=== PATIENT | male | born 1970 | race Caucasian/White ===

== ENCOUNTER 2023-11-29 05:43 | Inpatient (IN) | payer OTHER ==
[2023-11-29] VITALS (40 sets, daily range): BP systolic 37–99; BP diastolic 21–72; PULSE 0–113; RESP 14–25; TEMP 93.5–94; O2SAT 100
[~2023-11-29] VITALS: Ht 167.6 cm; Wt 78.5 kg
[2023-11-29 06:05] LABS: MEAN CORPUSCULAR HEMOGLOBIN 22.8 pg (28.0-32.0); MEAN CORPUSCULAR HGB CONC 26.9 g/dL (31.0-37.0); MEAN CORPUSCULAR VOLUME 84.9 fL (80.0-94.0); MEAN PLATELET VOLUME 12.1 fl (7.4-10.4); PLATELET 142 x1000/uL (130-400); RED BLOOD CELL COUNT 2.15 mill/uL (4.7-6.1); RED CELL DISTRIBUTION WIDTH 19.8 % (11.6-14.6); WHITE BLOOD COUNT 13.6 x1000/uL (4.5-11.0)
[2023-11-29 06:08] LABS: CHLORIDE 96 mEq/L (98-107); POTASSIUM 5.1 mEq/L (3.5-5.1); SODIUM 134 mEq/L (136-145)
[2023-11-29 06:09] LABS: CALCIUM 8.8 mg/dL (8.7-10.4)
[2023-11-29 06:10] LABS: INR 1.7; PROTHROMBIN TIME 18.2 sec (9.6-11.0)
[2023-11-29 06:14] LABS: CREATININE 2.4 mg/dL (0.6-1.3); GLUCOSE 400 mg/dL (70-105); UREA NITROGEN BLOOD 48 mg/dL (9-23)
[2023-11-29 06:16] LABS: DIFFERENTIAL COMMENT 1
[2023-11-29 06:20] LABS: HEMATOCRIT. 18.3 % (42.0-52.0); HEMOGLOBIN. 4.9 g/dL (14.0-18.0)
[2023-11-29] MEDS ORDERED: IOHEXOL-350 100 ML BOTTLE ONE (06:22)
[2023-11-29] MEDS ORDERED: MIDAZOLAM HCL 100 MG in DEXT 5% WATER 80 ML IV ONE (06:30)
[2023-11-29] MEDS ORDERED: NOREPINEPHRINE 8MG/250ML PMX 250 ML IV STA (06:30)
[2023-11-29] MEDS: SODIUM CHLORIDE 0.9% 1,000 ML IV ONE (06:30)
[2023-11-29 06:33] LABS: CARBON DIOXIDE < 10 mEq/L (21-32); ETHANOL BLOOD < 10 mg/dL (<10); LACTIC ACID 23.8 mmol/L (0.4-2.0); TROPONIN I HIGH SENSITIVITY 920 ng/L (3.0-53)
[2023-11-29] MEDS: ETOMIDATE 2MG/ML 10ML VIAL IV ONE (06:38)
[2023-11-29] MEDS: SUCCINYLCHOLINE CHLORIDE 200MG/10ML IV ONE (06:39)
[2023-11-29] MEDS: NOREPINEPHRINE 8MG/250ML PMX 250 ML IV NR (06:42)
[2023-11-29] MEDS ORDERED: MIDAZOLAM HCL 100 MG in SODIUM CHLORIDE 0.9% 100 ML IV PRN (06:45)
[2023-11-29 07:31] LABS: CLARITY URINE CLOUDY (CLEAR); COLOR URINE DARK YELLOW (YELLOW); GLUCOSE URINE 3+ (NEGATIVE); KETONES URINE TRACE (NEGATIVE); LEUKOCYTE ESTERASE URINE NEGATIVE (NEGATIVE); NITRITE URINE NEGATIVE (NEGATIVE); OCCULT BLOOD URINE NEGATIVE (NEGATIVE); PROTEIN URINE 1+ (NEGATIVE); SPECIFIC GRAVITY URINE 1.021 (1.005-1.030)
[2023-11-29 07:45] LABS: MUCUS URINE 2+ /lpf (NONE/TRACE)
[2023-11-29 07:46] LABS: RBC URINE NONE SEEN /hpf (0-2); SQUAMOUS EPITHELIAL CELL URINE FEW /lpf (RARE/1+)
[2023-11-29 07:48] LABS: BACTERIA URINE TRACE
[2023-11-29] MEDS: VASOPRESSIN 20 UNIT in SODIUM CHLORIDE 0.9% 99 ML STA (07:55)
[2023-11-29 07:59] LABS: *AMPHETAMINES SCREEN URINE NEGATIVE (NEGATIVE); *BARBITURATES SCREEN URINE NEGATIVE (NEGATIVE); *BENZODIAZEPINES SCREEN URINE NEGATIVE (NEGATIVE); *COCAINE SCREEN URINE NEGATIVE (NEGATIVE); CANNABINOID URINE SCREEN NEGATIVE (NEGATIVE); ECSTASY MDMA SCREEN URINE NEGATIVE (NEGATIVE); METHADONE URINE SCREEN NEGATIVE (NEGATIVE); OPIATES URINE SCREEN NEGATIVE (NEGATIVE); PHENCYCLIDINE URINE SCREEN NEGATIVE (NEGATIVE)
[2023-11-29] MEDS: VASOPRESSIN 20 UNIT in SODIUM CHLORIDE 0.9% 99 ML IV STA (08:30)
[2023-11-29] MEDS ORDERED: DOCUSATE SODIUM 100MG CAPSULE PO PRN (08:45)
[2023-11-29] MEDS ORDERED: ACETAMINOPHEN 325MG TABLET PO PRN ×2 (08:45)
[2023-11-29] MEDS ORDERED: ONDANSETRON HCL 4MG/2ML INJ IV PRN (08:45)
[2023-11-29] MEDS: SODIUM BICARBONATE 8.4% 50MEQ/50ML SYR IV ONE (08:45)
[2023-11-29] MEDS ORDERED: IPRATROPIUM/ALBUTEROL 0.5-3(2.5)MG/3ML NEB HHN PRN (08:45)
[2023-11-29] MEDS ORDERED: GUAIFENESIN 200MG/10ML SUGAR FREE UDC PO PRN (08:45)
[2023-11-29] MEDS ORDERED: MAGNESIUM/ALUMINUM HYDROXIDE/SIMETHICONE 30ML UDC PO PRN (08:45)
[2023-11-29] MEDS ORDERED: CLONIDINE 0.1MG TABLET PO PRN (08:45)
[2023-11-29] MEDS ORDERED: ETOMIDATE 2MG/ML 10ML VIAL IV ONE (09:00)
[2023-11-29] MEDS ORDERED: EPINEPHRINE 0.1MG/ML (1:10,000) 10ML SYR ONE (09:00)
[2023-11-29] MEDS ORDERED: DEXTROSE 50% WATER 50ML SYRINGE IV PRN (09:15)
[2023-11-29] MEDS: SODIUM BICARBONATE 8.4% 50MEQ/50ML SYR IV NR ×2 (09:15→12:25)
[2023-11-29] MEDS ORDERED: EPINEPHRINE 10 MG in SODIUM CHLORIDE 0.9% 240 ML IV PRN (09:15)
[2023-11-29] MEDS ORDERED: DOPAMINE 800MG PREMIX (DOUBLE) 250 ML IV PRN (09:15)
[2023-11-29] MEDS: DOPAMINE 800MG PREMIX (DOUBLE) 250 ML IV PRN (09:30)
[2023-11-29 09:42] LABS: IRON 50 ug/dL (65-175)
[2023-11-29 09:44] LABS: TOTAL IRON BINDING CAPACITY 313 ug/dl (250-425)
[2023-11-29] MEDS ORDERED: DEXT 5%/0.9% NACL 1,000 ML IV SCH (09:45)
[2023-11-29 09:50] LABS: FERRITIN 32 ng/mL (22-322); FOLIC ACID (FOLATE) SERUM > 20.00 ng/mL (>5.38); VITAMIN B12 SERUM 701 pg/mL (211-911)
[2023-11-29] MEDS ORDERED: PANTOPRAZOLE SODIUM 40 MG/VIAL IV SCH (10:00)
[2023-11-29 10:16] LABS: PHOSPHORUS 8.2 mg/dL (2.5-4.9); TROPONIN I HIGH SENSITIVITY 918 ng/L (3.0-53)
[2023-11-29 10:32] LABS: BG PCO2 27.8 mmHg (35.0-45.0); BG PH 6.871 (7.350-7.450); BG PO2 397.5 mmHg (75.0-100.0); BG TOTAL HEMOGLOBIN < 4.5 g/dL (12.0-18.0)
[2023-11-29] MEDS: EPINEPHRINE 10 MG in SODIUM CHLORIDE 0.9% 240 ML IV PRN (10:55)
[2023-11-29 11:14] LABS: ALANINE AMINOTRANSFERASE 457 IU/L (10-49); ALBUMIN 1.6 g/dL (3.2-4.8); ASPARTATE AMINOTRANSFERASE 678 IU/L (<34); BETA HYDROXYBUTYRATE 0.2 mMol/L (0.0-0.3); BILIRUBIN DIRECT 1.2 mg/dL (<=3.0); BILIRUBIN TOTAL 1.7 mg/dL (0.1-1.0); PROTEIN TOTAL 3.1 g/dL (6.0-8.3)
[2023-11-29 11:23] LABS: LACTATE DEHYDROGENASE 1368 IU/L (120-246)
[2023-11-29] MEDS ORDERED: NOREPINEPHRINE 32 MG in DEXT 5% WATER 218 ML IV PRN (11:30)
[2023-11-29 11:33] LABS: AMMONIA 1233 uMol/L (<32)
[2023-11-29] MEDS: NOREPINEPHRINE 32 MG in DEXT 5% WATER 218 ML IV PRN (11:52)
[2023-11-29] MEDS: PHENYLEPHRINE 100 MG in DEXT 5% WATER 240 ML IV PRN (11:53)
[2023-11-29] MEDS: SODIUM BICARBONATE 150 MEQ in DEXTROSE 5% WATER 850 ML IV SCH (11:54)
[2023-11-29] MEDS ORDERED: NOREPINEPHRINE 8MG/250ML PMX 250 ML IV PRN (12:00)
[2023-11-29] MEDS: OCTREOTIDE 1,000 MCG in SODIUM CHLORIDE 0.9% 98 ML IV PRN (12:20)
[2023-11-29] MEDS: PANTOPRAZOLE 80 MG in SODIUM CHLORIDE 0.9% 100 ML IV SCH (12:20)
[2023-11-29] MEDS: VASOPRESSIN 20 UNIT in SODIUM CHLORIDE 0.9% 99 ML IV PRN (12:21)
[2023-11-29] MEDS: VANCOMYCIN 1.5GM/250ML IV NR (12:21)
[2023-11-29] MEDS: PIPERACILLIN/TAZO 3.375G/50ML 50 ML IV SCH (12:25)
[2023-11-29 12:37] LABS: PLATELET ESTIMATE NORMAL
[2023-11-29 12:38] LABS: ANISOCYTOSIS 2+; HYPOCHROMASIA 1+
[2023-11-29] MEDS: OCTREOTIDE ACETATE 50 MCG/ML 1ML IV NR (12:51)
[2023-11-29] MEDS: BLOOD SUGAR DIAGNOSTIC STRIP TEST SCH (12:51)
[2023-11-29] MEDS: INSULIN LISPRO 100 UNITS/ML SUBCUT SCH (12:54)
[2023-11-29] MEDS ORDERED: OCTREOTIDE 1,000 MCG in SODIUM CHLORIDE 0.9% 98 ML IV PRN (13:40)
[2023-11-29] MEDS: LACTULOSE 20G/30ML UDC NG SCH (13:59)
[2023-11-29] MEDS: HYDROCORTISONE SOD SUCCINATE 100 MG/2 ML VIAL IV SCH (13:59)
[2023-11-29] MEDS: ALBUMIN HUMAN 25GM/100ML (25%) IV SCH (14:08)
[2023-11-30] MEDS ORDERED: PHYTONADIONE 10MG/ML INJ SUBCUT SCH (15:00)
== END 2023-11-29 15:58 | DRG 871 ==
LOC: ER 05:43 → CVICU 08:59 → EDBEDREQSVC 09:02 → EDBEDREQTM 09:02 → EDBEDREQ 09:02
PROVIDERS: ADMIT Preventive Medicine Clinical Informatics; ATTEND Preventive Medicine Clinical Informatics
PROC: 30233K1 Transfusion of Nonautologous Frozen Plasma into Peripheral Vein, Percutaneous Approach (ICD-10-PCS; principal; 2023-11-29)
PROC: 30233N1 Transfusion of Nonautologous Red Blood Cells into Peripheral Vein, Percutaneous Approach (ICD-10-PCS; 2023-11-29)
PROC: 5A1935Z Respiratory Ventilation, Less than 24 Consecutive Hours (ICD-10-PCS; 2023-11-29)
PROC: 0BH17EZ Insertion of Endotracheal Airway into Trachea, Via Natural or Artificial Opening (ICD-10-PCS; 2023-11-29)
DX: A41.9 Sepsis, unspecified organism (principal); G92.8 Other toxic encephalopathy; I21.A1 Myocardial infarction type 2; I63.81 Other cerebral infarction due to occlusion or stenosis of small artery; J96.01 Acute respiratory failure with hypoxia; J69.0 Pneumonitis due to inhalation of food and vomit; Z66 Do not resuscitate; D68.9 Coagulation defect, unspecified; K92.2 Gastrointestinal hemorrhage, unspecified; N17.9 Acute kidney failure, unspecified; M62.82 Rhabdomyolysis; D64.9 Anemia, unspecified; E78.5 Hyperlipidemia, unspecified; F10.10 Alcohol abuse, uncomplicated; I46.9 Cardiac arrest, cause unspecified; R29.724 NIHSS score 24; I65.21 Occlusion and stenosis of right carotid artery; K72.90 Hepatic failure, unspecified without coma; K76.82 Hepatic encephalopathy; R57.1 Hypovolemic shock; R57.8 Other shock; I12.9 Hypertensive chronic kidney disease with stage 1 through stage 4 chronic kidney disease, or unspecified chronic kidney disease; E11.22 Type 2 diabetes mellitus with diabetic chronic kidney disease; N18.9 Chronic kidney disease, unspecified; Z82.49 Family history of ischemic heart disease and other diseases of the circulatory system
CPT/HCPCS: 31500; 36415; 36600; 70496; 70498; 71045; 76770; 80048; 80076; 80305; 80320; 81003; 82010; 82140; 82248; 82375; 82607; 82728; 82746; 82962; 83540; 83550; 83605; 83615; 83735; 84100; 84145; 84484; 85025; 85044; 85379; 86850; 86900; 86920; 86927; 93005; 94003; 99291; J0330; J0461; J1265; J1720; J1815; J2250; J2354; J2370; J2470; J2543; J3370; J3490; J7030; J7050; J7060; J7070; P9016; P9017; P9047; Q9967; A4315; G0480